=== PATIENT | female | born 1975 | race Caucasian/White ===

== ENCOUNTER 2018-11-15 20:39 | Inpatient (IN) | payer OTHER ==
[2018-11-15] VITALS: BP 160/74
--- NOTE | ~2018-11-15 | EKG ---
[place], [place] ELECTROCARDIOGRAM REPORT NAME: CHUYITA ROBLES UNIT #: [id number] ROOM: 404 DOCTOR: CYNDI DRAFT REPORT BIRTHDATE: [birth year] [facility] Test Date: 2018-11-15 Test Time: 20:42:19 Pat Name: CHUYITA ROBLES Department: Room: 404 Gender: F Licensed Occupational Therapy Assistant: Renetta Pride : 1975 Requested By: MARYANA THOMAS Order Number: [id number] Reading MD: Ru Vazquez MD Measurements Intervals [place] Rate: 78 P: 48 [place]: 155 QRS: 45 QRSD: 90 T: 42 QT: 423 QTc: 482 Interpretive Statements Sinus rhythm Poor precordial R-wave progression Baseline wander in lead(s) I,II,aVR,aVL,V4,V5 Electronically Signed On 11-16-2018 15:47:00 PST by Ru Vazquez MD CM:EKGRPT:ELECTROCARDIOGRAM REPORT [id number] MARYANA RODRIGUEZ DRAFT REPORT MARYANA THOMAS DO
--- NOTE | ~2018-11-15 | EKG ---
[place], [place] ELECTROCARDIOGRAM REPORT NAME: CHUYITA ROBLES UNIT #: [id number] ROOM: 404 DOCTOR: CYNDI DRAFT REPORT BIRTHDATE: [birth year] [facility] Test Date: 2018-11-16 Test Time: 02:04:08 Pat Name: CHUYITA ROBLES Department: Room: 404 Gender: F Appian Developer: Renetta Pride : 1975 Requested By: MARYANA THOMAS Order Number: [id number] Reading MD: Ru Vazquez MD Measurements Intervals [place] Rate: 75 P: 47 IN: 164 QRS: 11 QRSD: 78 T: 32 QT: 371 QTc: 415 Interpretive Statements Sinus rhythm Borderline T wave abnormalities Electronically Signed On 11-16-2018 15:49:04 PST by Ru Vazquez MD CM:EKGRPT:ELECTROCARDIOGRAM REPORT [id number] MARYANA RODRIGUEZ DRAFT REPORT MARYANA THOMAS DO
--- NOTE | ~2018-11-15 | PR ---
[place], [place] PROGRESS NOTE NAME: CHUYITA ROBLES [facility] #: [id number] UNIT #: [id number] ROOM: 404 DOCTOR: HERMAN QUINTANILLAMAC BIRTHDATE: [birth year] DOS: 11/18/2018 GASTROENDOSCOPIC PROGRESS NOTE HISTORY OF PRESENT ILLNESS: This is a 43-year-old patient who presented with chief complaint of abdominal pain, during investigation was found to have a substantiated gallbladder disease with presence of cholelithiasis and during the course, she had leukocytosis and elevation of lipase, abnormal GOT, GPT 250 and 300+ with bilirubin of 2.5 and alkaline phosphatase of 118. CT scan sonographic and MRCP were reviewed. There was no common duct dilation. There was no obstructive suggestion. Therefore, further studies deferred to be done as an outpatient. Her triglyceride level was normal. She has no history of alcohol. She has no history of smoking. Her troponin was negative. Beta hCG was negative. CT scan of the abdomen and pelvis, no acute pathology was suggested. Acute hepatitis panel was all nonreactive. REVIEW OF SYSTEMS: HEENT: Denies double vision, blurred vision. RESPIRATORY: Denies acute shortness of breath. CARDIOVASCULAR: Denies chest pain. DIGESTIVE SYSTEM: Cross abdominal pain. No hematemesis, no hematochezia. PHYSICAL EXAMINATION: VITAL SIGNS: Appears to be benign. She is nontoxic, sitting up and talking comfortable. HEENT: Benign. NECK: Supple, no thyromegaly. CHEST: Symmetric anatomy, equal expansion. HEART: Normal sinus rhythm, no gallop, no murmur. ABDOMEN: Soft. No hepato-organomegaly. Bowel sounds present. No pulsatile mass. Cross abdominal pain at the level of subxiphoid is noticed. EXTREMITIES: Benign. NEUROLOGIC: Fully alert, oriented to time, place, person. LABORATORY DATA: Lipase today has returned to normal level as well as a liver function tests, somewhat has settled down; however, SGOT of 305 and alkaline phosphatase of 133 and GPT of 100 and lipase normal. PLAN AND DISCUSSION: Outpatient followup and most likely the etiology is pancreatitis of sudden occurrence in this patient who has passed common duct stone so far. Of course, the differential diagnosis is enormous, but at this time since we have a mechanical cause, we are going to consider this patient may need cholecystectomy to eradicate this second misfortune of the pancreatitis secondary to cholelithiasis i.e. choledocholithiasis. [place], [place] PROGRESS NOTE NAME: CHUYITA ROBLES Justin UNIT #: [id number] ROOM: [facility] DOCTOR: MAC SUTTON MD BIRTHDATE: [birth year] MAC SUTTON MD CM:PNTRANS [id number] MAC SUTTON MD 11/19/18 0605 interface
--- NOTE | ~2018-11-15 | EKG ---
[place], [place] ELECTROCARDIOGRAM REPORT NAME: CHUYITA ROBLES UNIT #: [id number] ROOM: 404 DOCTOR: CYNDI DRAFT REPORT BIRTHDATE: [birth year] [facility] Test Date: 2018-11-15 Test Time: 23:18:54 Pat Name: CHUYITA ROBLES Department: Room: 404 Gender: F Pediatric Orthodontist: Renetta Pride : 1975 Requested By: MARYANA THOMAS Order Number: [id number] Reading MD: Ru Vazquez MD Measurements Intervals [place] Rate: 77 P: 265 RI: 126 QRS: 19 QRSD: 80 T: 24 QT: 411 QTc: 466 Interpretive Statements Ectopic atrial rhythm Borderline T wave abnormalities Compared to earlier ECG this date Ectopic atrial rhythm is now present Electronically Signed On 11-16-2018 15:48:11 PST by Ru Vazquez MD CM:EKGRPT:ELECTROCARDIOGRAM REPORT 1548 MARYANA RODRIGUEZ DRAFT REPORT MARYANA THOMAS DO
[2018-11-15 20:49] VITALS: BP 165/86
[2018-11-15 20:52] LABS: BASO # 0.1 10*3/uL (0.0-0.1); BASO % 0.5 % (0.0-1.0); EOS # 0.3 10*3/uL (0.0-0.4); EOS % 2.1 % (1.0-4.0); HEMATOCRIT 42.2 % (37.0-47.0); HEMOGLOBIN 14.1 g/dl (12.0-16.0); LYMPH # 3.4 10*3/uL (1.3-4.4); LYMPH % 24.8 % (27.0-41.0); MEAN CELL VOLUME 90.9 fl (81.0-99.0); MEAN CORPUSCULAR HGB 30.4 pg (27.0-31.0); MEAN CORPUSCULAR HGB CONC 33.4 g/dl (33.0-37.0); MEAN PLATELET VOLUME 8.8 fl (9.6-12.3); MONO # 0.8 10*3/uL (0.1-1.0); MONO % 5.6 % (3.0-9.0); NEUT # 9.1 10*3/uL (2.3-7.9); NEUT % 66.1 % (47.0-73.0); PLATELET COUNT AUTOMATED 438 10*3/uL (130-400); RED BLOOD COUNT 4.64 10*6/uL (4.10-5.10); RED CELL DISTRI WIDTH 12.4 % (0-14.5); WHITE BLOOD COUNT 13.7 10*3/uL (4.8-10.8)
[2018-11-15 21:09] LABS: ALBUMIN 4.1 gm/dl (3.1-4.5); ALKALINE PHOSPHATASE 112 U/L (45-117); BUN 13 mg/dl (7-24); CHLORIDE 108 mmol/L (98-107); CREATININE 0.68 mg/dL (0.55-1.02); POTASSIUM 3.8 mmol/L (3.5-5.1); SGOT/AST 133 IU/L (3-35); SGPT/ALT 278 U/L (12-78); SODIUM 140 mmol/L (136-145); TOTAL PROTEIN 8.1 gm/dL (6.4-8.2)
[2018-11-15 21:10] LABS: TROPONIN I < 0.015 ng/ml (<0.045)
[2018-11-15 21:14] LABS: ACT PARTIAL THROMBO TIME 25.9 SECONDS (20.8-31.5); INTERNATIONAL NORM RATIO 0.9 (2.0-3.5)
[2018-11-15 23:05] VITALS: BP 126/74
--- NOTE | 2018-11-15 23:05 | NUR ---
A 43, admitted to , under the services of J LUIS Ramsey DO with a diagnosis of PANCREATITIS. Chief complaint is CHEST PAIN. Patient arrived via stretcher from ER. Monitor applied. Initial assessment completed. Vital signs taken and recorded. J LUIS RAMSEY DO notified of admission to the unit. Orders received. See assessment for past medical history, medications and allergies. Patient and/or family oriented to unit. [facility] 4TH FLOOR visitation policy reviewed. Clothing/patient valuable form completed. OMAIRA ALY
[2018-11-16] VITALS: BP 160/74
[2018-11-16] MEDS ORDERED: LEXAPRO20 MG PO (00:37)
[2018-11-16] MEDS ORDERED: ATIVAN2 M1 PO (00:39)
[2018-11-16 02:41] LABS: BASO # 0.1 10*3/uL (0.0-0.1); BASO % 0.6 % (0.0-1.0); EOS # 0.2 10*3/uL (0.0-0.4); EOS % 2.1 % (1.0-4.0); HEMOGLOBIN 12.9 g/dl (12.0-16.0); LYMPH # 2.8 10*3/uL (1.3-4.4); LYMPH % 24.1 % (27.0-41.0); MEAN CELL VOLUME 92.4 fl (81.0-99.0); MEAN CORPUSCULAR HGB 30.6 pg (27.0-31.0); MEAN CORPUSCULAR HGB CONC 33.1 g/dl (33.0-37.0); MEAN PLATELET VOLUME 8.7 fl (9.6-12.3); MONO # 0.7 10*3/uL (0.1-1.0); MONO % 5.7 % (3.0-9.0); NEUT # 7.6 10*3/uL (2.3-7.9); NEUT % 66.7 % (47.0-73.0); PLATELET COUNT AUTOMATED 380 10*3/uL (130-400); RED BLOOD COUNT 4.22 10*6/uL (4.10-5.10); RED CELL DISTRI WIDTH 12.6 % (0-14.5); WHITE BLOOD COUNT 11.4 10*3/uL (4.8-10.8)
[2018-11-16 02:58] LABS: ALBUMIN 3.7 gm/dl (3.1-4.5); ALKALINE PHOSPHATASE 118 U/L (45-117); BUN 11 mg/dl (7-24); CHLORIDE 109 mmol/L (98-107); CHOLESTEROL 176 mg/dL (<200); CREATININE 0.57 mg/dL (0.55-1.02); LIPASE 461 U/L (73-393); POTASSIUM 3.5 mmol/L (3.5-5.1); SGOT/AST 250 IU/L (3-35); SGPT/ALT 304 U/L (12-78); SODIUM 140 mmol/L (136-145); TRIGLYCERIDES 201 mg/dl (<150); VLDL CHOLESTEROL 40 mg/dL (6-40)
[2018-11-16 02:59] LABS: FREE T4 0.95 ng/dl (0.76-1.46); HDL CHOLESTEROL 35 mg/dl (40-60); LDL CHOLESTEROL 101 mg/dL (9-159)
[2018-11-16 03:04] LABS: THYROID STIM HORMONE (HS) 0.641 uIU/ml (0.358-4.75)
--- NOTE | 2018-11-16 06:27 | NUR ---
MEDICATED WITH TYLENOL FOR C/O OF A HEADACHE. RATES 03/27
[2018-11-16 08:00] VITALS: BP 106/78
--- NOTE | 2018-11-16 08:05 | NUR ---
Shift chart check completed.
--- NOTE | 2018-11-16 08:55 | NUR ---
pt complain of nausea and abdominal pain 5/10, zofran and morphine given. pt states no other needs at this time
--- NOTE | 2018-11-16 09:00 | NUR ---
Porcelain Slusher in to talk to patient. Patient states lives at home with and family. There are few steps in the home. Physician: out of area doctor Pharmacy: [facility] Home health services: none Patient's level of ADLs: INDEPENDENT Patient has working utilities: all working DME: none Follow-up physician's appointment after d/c: will be made by hospitalist nurse director upon discharge Does patient want to access PORTAL?: no Discharge plan discussed with patient, patient lives at home with family, she is independent in adls and ambualtion, patient states she will be going home when able and denies any home needs. PAMELA LAURENT
--- NOTE | 2018-11-16 09:30 | NUR ---
PT STATES ZOFRAN AND MORPHINE EFFECTIVE
[2018-11-16 12:00] VITALS: BP 110/58
--- NOTE | 2018-11-16 12:31 | NUR ---
PT AWARE TO REMAIN NPO FOR ULTRASOUND OF ABDOMEN. PT STATES PAIN RETURNING IN ABDOMEN, HOWEVER AT THIS TIME, TOLERABLE. PT AWARE MORPHINE NOT AVAILABLE TO BE GIVEN AGAIN UNTIL 1245, PT WILL NOTIFY STAFF IF PAIN INCREASES AND IS REQUIRING PAIN MEDICATION.
--- NOTE | 2018-11-16 15:22 | NUR ---
pt complain of nausea and abdominal pain, zofran and morphine given. see emar
[2018-11-16 16:00] VITALS: BP 115/62
--- NOTE | 2018-11-16 16:46 | NUR ---
PT RETURN FROM ULTRASOUND, PT STATES PAIN IS BETTER, MORPHINE EFFECTIVE
[2018-11-16 20:00] VITALS: BP 119/67
[2018-11-16] MEDS ORDERED: BENADRYL ALLERG25 M5 PO (20:25)
--- NOTE | 2018-11-16 20:27 | NUR ---
PT COMLAIN OF HIVES SHE STATES HAPPENED AFTER WASHING UP WITH THE HOSPITAL SOAP. NO DIFFICULTY BREATHING, DR. BOYKIN MADE AWARE PT ALSO STATES HEADACHE,RECEIVED ORDERS. SEE ORDERS/EMAR
--- NOTE | 2018-11-16 21:07 | NUR ---
benadryl and motrin given for headache and hives
[2018-11-17] VITALS: BP 121/70
[2018-11-17 07:07] LABS: HEPATITIS B SURFACE AG Negative (Negative); HEPATITIS C VIRUS ANTIBODY <0.1 s/co (0.0-0.9)
--- NOTE | 2018-11-17 07:25 | NUR ---
PT REQUESTED NAD WAS MEDICATED WITH MOTRIN FOR C/O HEADACHE. CALL LIGHT IN REACH. WILL MONITOR
[2018-11-17 07:56] LABS: BASO # 0.1 10*3/uL (0.0-0.1); EOS # 0.4 10*3/uL (0.0-0.4); EOS % 5.8 % (1.0-4.0); HEMATOCRIT 35.8 % (37.0-47.0); HEMOGLOBIN 11.7 g/dl (12.0-16.0); LYMPH # 2.2 10*3/uL (1.3-4.4); MEAN CELL VOLUME 93.5 fl (81.0-99.0); MEAN CORPUSCULAR HGB 30.5 pg (27.0-31.0); MEAN CORPUSCULAR HGB CONC 32.7 g/dl (33.0-37.0); MEAN PLATELET VOLUME 8.8 fl (9.6-12.3); MONO # 0.4 10*3/uL (0.1-1.0); MONO % 7.3 % (3.0-9.0); NEUT # 2.9 10*3/uL (2.3-7.9); NEUT % 48.1 % (47.0-73.0); PLATELET COUNT AUTOMATED 331 10*3/uL (130-400); RED BLOOD COUNT 3.83 10*6/uL (4.10-5.10); RED CELL DISTRI WIDTH 12.7 % (0-14.5)
[2018-11-17 08:00] VITALS: BP 112/78
[2018-11-17 08:17] LABS: ALBUMIN 3.1 gm/dl (3.1-4.5); ALKALINE PHOSPHATASE 137 U/L (45-117); BUN 8 mg/dl (7-24); CHLORIDE 111 mmol/L (98-107); CREATININE 0.51 mg/dL (0.55-1.02); POTASSIUM 3.8 mmol/L (3.5-5.1); SGOT/AST 246 IU/L (3-35); SGPT/ALT 415 U/L (12-78); SODIUM 144 mmol/L (136-145); TOTAL PROTEIN 6.3 gm/dL (6.4-8.2)
[2018-11-17 08:23] LABS: LIPASE 90 U/L (73-393)
--- NOTE | 2018-11-17 08:25 | NUR ---
MEDICATION EFFECTIVE PER PT. PT STATES SHE NO LONGER HAS A HEADACHE. PT STATES SHE HAS PAIN IN HER ABDOMEN, MEDICATED WITH MORPHINE IV PER REQUEST.
--- NOTE | 2018-11-17 09:00 | NUR ---
case management visits with patient, patient states she will be going home when able and denies any home needs
--- NOTE | 2018-11-17 09:40 | NUR ---
MEDICATION EFFECTIVE PER PT. CALL LIGHT IN REACH. WILL MONITOR
--- NOTE | 2018-11-17 11:20 | NUR ---
CONSULT CALLED TO DR SUTTON. LABS/TESTING ALL REVIEWED. DR MONTIEL STATES HE WANTS CALLED WITH MRCP RESULTS AND PT IS TO STAY NPO TILL RESULTS ARE CALLED.
[2018-11-17 12:00] VITALS: BP 116/63
[2018-11-17 16:00] VITALS: BP 121/78
--- NOTE | 2018-11-17 17:30 | NUR ---
PT REQUESTED AND WAS MEDICATED WITH MORPHINE FOR C/O ABDOMINAL PAIN AND ZOFRAN IV FOR C/O NAUSEA. CALL LIGHT IN REACH. WILL MONITOR
[2018-11-17 20:00] VITALS: BP 126/60
[2018-11-18] VITALS: BP 109/52
[2018-11-18 06:11] LABS: ALBUMIN 3.2 gm/dl (3.1-4.5); ALKALINE PHOSPHATASE 132 U/L (45-117); BUN 8 mg/dl (7-24); CHLORIDE 110 mmol/L (98-107); CREATININE 0.48 mg/dL (0.55-1.02); LIPASE 97 U/L (73-393); POTASSIUM 3.6 mmol/L (3.5-5.1); SGOT/AST 101 IU/L (3-35); SGPT/ALT 305 U/L (12-78); SODIUM 143 mmol/L (136-145); TOTAL PROTEIN 6.7 gm/dL (6.4-8.2)
[2018-11-18 06:41] LABS: BASO # 0.1 10*3/uL (0.0-0.1); BASO % 0.6 % (0.0-1.0); EOS # 0.4 10*3/uL (0.0-0.4); EOS % 4.4 % (1.0-4.0); HEMATOCRIT 36.8 % (37.0-47.0); HEMOGLOBIN 11.8 g/dl (12.0-16.0); LYMPH % 38.1 % (27.0-41.0); MEAN CELL VOLUME 94.6 fl (81.0-99.0); MEAN CORPUSCULAR HGB 30.3 pg (27.0-31.0); MEAN CORPUSCULAR HGB CONC 32.1 g/dl (33.0-37.0); MEAN PLATELET VOLUME 9.3 fl (9.6-12.3); MONO # 0.5 10*3/uL (0.1-1.0); MONO % 6.8 % (3.0-9.0); NEUT # 3.9 10*3/uL (2.3-7.9); NEUT % 49.2 % (47.0-73.0); PLATELET COUNT AUTOMATED 372 10*3/uL (130-400); RED BLOOD COUNT 3.89 10*6/uL (4.10-5.10); RED CELL DISTRI WIDTH 12.7 % (0-14.5)
[2018-11-18 08:00] VITALS: BP 110/52
--- NOTE | 2018-11-18 09:00 | NUR ---
case management visits with patient, patient states she will be going home when able and denies any home needs
--- NOTE | 2018-11-18 10:42 | NUR ---
PATIENT C/O HEADACHE, DR AMIN NOTIFIED RECEIVED ORDERS TO GIVE PATIENT PRN IV MORPHINE DUE TO NPO STATUS. PATIENT MEDICATED WITH 2MG IV PUSH MORPHINE PER ORDERS , WILL MONITOR PATIENT FOR EFFECTIVENESS. CALL LIGHT WITHIN REACH.
--- NOTE | 2018-11-18 11:13 | NUR ---
SPOKE WITH DR SUTTON RE: RESULTS OF MRCP, NO NEW ORDERS RECEIVED. INFORMED DR SUTTON THAT PATIENT WAS REQUESTING DRINK, DR STATES PATIENT MAY HAVE A DRINK AND THEN IS TO REMAIN NPO AND HE WILL SEE HER THIS AFTERNOON. PATIENT INFORMED DR SUTTON WILL BE IN TO SEE HER TODAY.
[2018-11-18 12:00] VITALS: BP 109/73
[2018-11-18 13:35] VITALS: BP 102/78
--- NOTE | 2018-11-18 13:36 | NUR ---
PATIENT C/O "EXCRUCIATING HEADACHE/SINUS PRESSURE AND IT HURTS TO TALK" MEDICATED WITH PRN IV TORADOL AT THIS TIME PER ORDERS. PATIENT ALSO C/O NAUSEA DUE TO PAIN FROM HEADACHE, MEDICATED WITH PRN IV ZOFRAN AT THIS TIME. CHECKED PATIENT BLOOD PRESSURE IS 102/78 AT THIS TIME. PATIENT AT BEDSIDE VISITING, WILL MONITOR PATIENT FOR MEDICATION EFFECTIVENES.. CALL LIGHT WITHIN REACH.
[2018-11-18] MEDS ORDERED: VITAMIN D32000 UNI1 PO (15:36)
[2018-11-18] MEDS ORDERED: ZOFRAN4 MG PO (15:36)
[2018-11-18 16:00] VITALS: BP 105/58
--- NOTE | 2018-11-18 16:50 | NUR ---
Discharge instructions reviewed with patient/family. Patient receptive and verbalizes understanding. Follow-up care arranged. Written instructions given to patient/family. [place] DISCONTINUED. PATIENT AMBULATORY OFF FLOOR WITH . SAW PT AND OK TO BE D/C'ED BIANCA YATES
== END 2018-11-18 16:50 | disposition home or self-care (01) | DRG 439 ==
LOC: ED 20:39 → EDHOLD 22:16 → 4E 22:16
PROVIDERS: Family Medicine; Internal Medicine; Student in an Organized Health Care Education/Training Program; ADMIT Internal Medicine
DX: K85.90 Acute pancreatitis without necrosis or infection, unspecified (principal); E44.1 Mild protein-calorie malnutrition; R17 Unspecified jaundice; Z88.1 Allergy status to other antibiotic agents; D47.3 Essential (hemorrhagic) thrombocythemia; E87.8 Other disorders of electrolyte and fluid balance, not elsewhere classified; F41.0 Panic disorder [episodic paroxysmal anxiety]; R73.03 Prediabetes; D64.9 Anemia, unspecified; E55.9 Vitamin D deficiency, unspecified; K80.20 Calculus of gallbladder without cholecystitis without obstruction; Z68.34 Body mass index [BMI] 34.0-34.9, adult

== ENCOUNTER 2023-02-19 19:08 | Emergency (ER) | payer BC ==
[~2023-02-19] VITALS: Wt 113.4 kg
[~2023-02-19 19:08] MED LIST: ATIVAN2 M1 PO; BENADRYL ALLERG25 M5 PO; LEXAPRO20 MG PO; VITAMIN D32000 UNI1 PO; ZOFRAN4 MG PO
[2023-02-19 20:21] LABS: BILIRUBIN Negative (Negative); BLOOD Negative (Negative); CLARITY Clear (Clear); COLOR Yellow (Yellow); GLUCOSE Negative (Negative); KETONE Negative (Negative); LEUKO ESTERASE 2+ (Negative); NITRITE Negative (Negative); SPECIFIC GRAVITY 1.015 (1.001-1.030); UROBILINOGEN 0.2 E.U./dl (0.0-1.0)
[2023-02-19 20:50] LABS: BACTERIA 2+; RBC 0-2 rbc/hpf (0-2); WBC 16-20 wbc/hpf (0-5)
[2023-02-19] MEDS ORDERED: NAPROSYN500 MG PO (21:30)
== END 2023-02-19 21:36 | disposition home or self-care (01) ==
LOC: ED 19:08
PROVIDERS: Nurse Practitioner Family
DX: S39.011A Strain of muscle, fascia and tendon of abdomen, initial encounter (principal); D25.9 Leiomyoma of uterus, unspecified; N20.0 Calculus of kidney; Z88.1 Allergy status to other antibiotic agents; Z79.899 Other long term (current) drug therapy; Z90.49 Acquired absence of other specified parts of digestive tract; Z98.890 Other specified postprocedural states; X50.9XXA Other and unspecified overexertion or strenuous movements or postures, initial encounter; Y93.89 Activity, other specified; Y92.89 Other specified places as the place of occurrence of the external cause; Y99.8 Other external cause status